=== PATIENT | female | born 1945 | race Caucasian/White ===

== ENCOUNTER 2021-03-21 10:36 | Emergency (ER) | payer MEDICARE, SELFPAY ==
[2021-03-21 10:37] VITALS: BP 183/110; PULSE 67; RESP 20; TEMP 36.6; O2SAT 98; BMI 31.4
[2021-03-21 11:07] VITALS: BP 155/89; PULSE 89; RESP 18; TEMP 37.2; O2SAT 96; O2SAT 98
--- NOTE | 2021-03-21 12:18 | RAD_ITS ---
INDICATION: cough EXAMINATION/TECHNIQUE: X-RAY - XR Chest 1 View COMPARISON: None. FINDINGS: LINES/DEVICES: None. Cardiomediastinal silhouette is within normal limits. Prominent interstitial markings and peribronchial cuffing suggestive of small airways disease. No focal consolidations, effusions, or sizable pneumothorax. Osseous structures are grossly intact. RAD/Chest 1 View (Portable) IMPRESSION: Findings suggestive of small airways disease such as bronchiolitis or bronchitis. Electronically Signed: Dash Hastings MD at 13:14 EST Tel , Service support ,
--- NOTE | 2021-03-21 12:19 | EDS_ITS ---
HPI History of Present Illness Chief Complaint: Shortness of Breath Informant: patient and family Narrative Narrative: 75-year-old female presenting to the emergency department with cough. Patient states that she has been diagnosed with chronic bronchitis. She states she has never smoked. She states that her doctor retired and she is from [place] and she would like a refill of her Symbicort. Her sister brought her to the emergency department today noting that her cough is very bad. She denies any fevers. She notes some morning sputum production. [facility] Asthma Bronchitis Home Medications albuterol sulfate [Ventolin HFA] 2 puff INHALATION Q4H PRN PRN #1 inhaler 03/21/21 [Rx Last Taken Unknown] fluoxetine [Prozac] 20 mg PO BID 03/21/21 [History Last Taken Unknown] prednisone See Rx Instructions .ROUTE .COMPLEX #24 tablet 03/21/21 [Rx Last Taken Unknown] trazodone 50 mg PO QHS 03/21/21 [History Last Taken Unknown] Allergy/AdvReac Type Severity Reaction Status Date / Time No Known Allergies Allergy Verified 03/21/21 10:40 Surgical History History of hysterectomy Hx of appendectomy Social History (Updated 03/21/21 @ 12:[address] Baldomero Coker DO) Smoking Status: Never smoker substance use type: does not use ROS ROS ED Constitutional Constitutional ED: Denies chills, fever(s) or weight loss Eyes Eyes: Denies change in vision or diplopia ENT ENT ED: Denies ear pain, rhinorrhea or sore throat Cardiovascular Cardiovascular: Denies chest pain, orthopnea, palpitations or racing heartbeat Respiratory/Chest Respiratory/Chest: Reports cough, dyspnea, dyspnea on exertion and sputum; Denies orthopnea Gastrointestinal Gastrointestinal: Denies abdominal pain, diarrhea, nausea or vomiting Genitourinary Genitourinary ED: Denies dysuria, hematuria or urinary frequency Musculoskeletal Musculoskeletal: Denies arthralgias or myalgias Integumentary Denies abscess or rash Neurologic Neurologic: Denies headache(s) or weakness Psychiatric Psychiatric: Denies anxiety, depression, suicidal ideation or suicidal thoughts Endocrine Endocrinology: Denies polydipsia, polyphagia or polyuria Allergic/Immunologic Allergic/Immunologic ED: Denies mouth swelling, tongue swelling or urticaria EXAM Physical Exam Const Vital Signs: 03/21/21 10:37 03/21/21 11:07 03/21/21 12:24 Temperature 97.9 F 98.9 F Temperature Source Temporal Oral Pulse Rate 67 89 64 Respiratory Rate 20 H 18 18 Respiratory Effort Short of Breath Respiratory Depth Normal Respiratory Pattern Normal Blood Pressure 183/110 H 155/89 H Blood Pressure Mean 134 111 Pulse Ox 98 98 93 Oxygen Delivery Method Room Air Nasal Cannula Room Air 03/21/21 13:02 Temperature 98.9 F Temperature Source Temporal Pulse Rate 67 Respiratory Rate 18 Respiratory Effort Respiratory Depth Respiratory Pattern Blood Pressure Blood Pressure Mean Pulse Ox 96 Oxygen Delivery Method Room Air Positive well nourished and well developed General Appearance ED: well developed HEENT Reports normocephalic, head/scalp atraumatic, TM's clear and moist mucous membranes atraumatic Tympanic Membrane ED: Yes TM's clear Eyes PERRL and EOMs intact bilaterally Neck no lymphadenopathy, supple and no JVD Resp Auscultation: rhonchi, wheezes and diminished lung sounds Cardio regular rate, regular rhythm and no murmurs GI normal to inspection, nondistended, normoactive bowel sounds and non-tender Palpation: soft Back/Spine no CVA tenderness and normal ROM Extremity normal to inspection General Extremety ED: Negative for edema General Extremity: Negative for edema Neuro oriented x3 and CN's II-XII intact bilaterally Sensorium / Orientation: alert Motor Exam: strength 5/5 throughout Psych mental status grossly normal Mood & Affect: Negative for depressed or tearful Skin no rashes or lesions noted and no wounds MDM MDM MDM Narrative Medical decision making narrative: White count 9.9. BMP negative. Inter pretation of the chest x-ray is no focal consolidation. Radiology reads this is suggestive of small airway disease. Patient received DuoNeb and albuterol. She also received Solu-Medrol. She feels better on repeat examination she has improved aeration but she continues to have moist cough and some expiratory wheezes. She is 97% on room air. Think patient can be discharged home with albuterol MDI and prednisone. I recommended that she follow-up with pulmonology in [place] when she returns home. Lab Data Attestation: I reviewed the patient's lab results. Labs: Laboratory Results - last 24 hr 03/21/21 03/21/21 12:25 12:25 WBC 9.9 RBC 4.74 Hgb 14.0 Hct 42.0 MCV 88.6 MCH 29.5 MCHC 33.3 RDW Std Deviation 42.8 RDW Coeff of [place] 13.2 Plt Count 242 MPV 10.3 Immature Gran % (Auto) 0.200 Neut % (Auto) 56.8 Lymph % (Auto) 20.0 [place] % (Auto) 7.7 Eos % (Auto) 14.7 H Baso % (Auto) 0.6 Absolute Neuts (auto) 5.6 Absolute Lymphs (auto) 1.98 Nucleated RBC % 0 Sodium 140 Potassium 4.0 Chloride 107 Carbon Dioxide 28.0 Anion Gap 5 BUN 12 Creatinine 0.85 Estim Creat Clear Calc 55.18 Est GFR (MDRD) Af Amer 84 Est GFR (MDRD) Non-Af 69 BUN/Creatinine Ratio 14.1 Glucose 102 Calcium 9.2 Radiography Diagnostic Testing: Clinical Impression(s) from Imaging Studies Chest X-Ray 03/21/21 12:18 IMPRESSION: Findings suggestive of small airways disease such as bronchiolitis or bronchitis. Electronically Signed: Dash Hastings MD at 13:14 EST Tel , Service support , Discharge Plan Triage Chief Complaint: Shortness of Breath ED Provider: Baldomero Coker Dx/Rx/DC Orders Clinical Impression: Acute bronchitis with bronchospasm Instructions: ED Bronchitis with Wheezing (Adult) Prescriptions: New prednisone 20 MG tablet See Rx Instructions .ROUTE .COMPLEX Qty: 24 RF: 0 albuterol sulfate [Ventolin HFA] 1 INHALER inhaler 2 puff inhalation Q4H PRN PRN (Reason: Wheezing) Qty: 1 RF: 0 No Action trazodone 50 mg Tablet 50 mg PO QHS RF: 0 fluoxetine [Prozac] 20 mg Capsule 20 mg PO BID RF: 0 Activity Restrictions/Additional Instructions: I strongly recommend that you follow-up with a patient registration representative when you return home to [place]. I think you would benefit you to have pulmonary function testing. Disposition Disposition: Home, Self Care
[2021-03-21] MEDS: Ipratropium/Albuterol Sulfate 3 ML AMPUL.NEB INHALATION (12:22)
[2021-03-21] MEDS: Albuterol 2.5 MG/3 ML VIAL.NEB. INHALATION (12:23)
[2021-03-21 12:24] VITALS: PULSE 64; RESP 18; O2SAT 93
[2021-03-21 12:34] LABS: Absolute Lymphocyte Count 1.98 X10^3/uL (0.83-4.51); Absolute Neutrophil Count 5.6 X10^3/uL (2.0-7.7); Basophil# 0.06 X10^3/uL; Basophil% 0.6 % (0-1); Eosinophil# 1.46 X10^3/uL; Eosinophils% 14.7 % (0-5); Lymphocyte # 1.98 X10^3/ul (0.83-4.51); Mean Corp Hgb Conc 33.3 g/dL (32-36); Mean Corpuscular Hgb 29.5 pg (27.0-32.0); Mean Corpuscular Volume 88.6 fL (81-99); Mean Platelet Vol. 10.3 fl (6.2-12.0); Monocyte# 0.76 X10^3/uL; Monocyte% 7.7 % (0-10); NRBC Flagged by Analyzer 0 % (0-5); Neutrophil # 5.64 X10^3/uL (2.7-7.7); Neutrophil % 56.8 % (47-70); Platelet Count 242 K/mm3 (150-450); RBC Distribution Width CV 13.2 % (11.6-14.6); RBC Distribution Width SD 42.8 fl (35.1-43.9); Red Blood Count 4.74 M/mm3 (4.2-5.4); White Blood Count 9.9 K/mm3 (4.4-11.0)
[2021-03-21 12:51] LABS: Anion Gap 5 (5-15); BUN 12 mg/dL (7-18); BUN/Creat Ratio 14.1 RATIO (10-20); Calcium,Total 9.2 mg/dL (8.5-10.1); Chloride 107 mmol/L (98-107); Creatinine, Serum 0.85 mg/dL (0.55-1.02); EST Glomerular Filtration Rate 69 mL/min (>60); Est Glom Filt Rate - Afr Amer 84 mL/min (>60); Estimated Creatinine Clearance 55.18 ml/min; Glucose 102 mg/dL (74-106); Sodium Level 140 mmol/L (136-145)
[2021-03-21 13:02] VITALS: PULSE 67; RESP 18; TEMP 37.2; O2SAT 96
[2021-03-21] MEDS: MethylPREDNISolone 125 MG/2 ML Vial IV (13:07)
[2021-03-21 13:50] VITALS: BP 133/85; PULSE 68; RESP 16; TEMP 37.1; O2SAT 97
== END 2021-03-21 13:52 | disposition home or self-care (01) ==
PROVIDERS: Emergency Provider Emergency Medicine
DX: J20.9 Acute bronchitis, unspecified (principal); J45.909 Unspecified asthma, uncomplicated; Z79.51 Long term (current) use of inhaled steroids
CPT/HCPCS: 71045; 80048; 85025; 94640; 94760; 96374; 99283; A4216

== ENCOUNTER → 2022-08-11 | Outpatient (CLI) | payer MEDICARE, SELFPAY ==
[2022-08-11 11:24] LABS: Hematocrit 40.1 % (37-47); Hemoglobin 12.8 g/dL (12.0-15.0); Mean Corp Hgb Conc 31.9 g/dL (32-36); Mean Corpuscular Hgb 29.5 pg (27.0-32.0); Mean Corpuscular Volume 92.4 fL (81-99); Mean Platelet Vol. 10.5 fl (6.2-12.0); Platelet Count 237 K/mm3 (150-450); RBC Distribution Width CV 13.1 % (11.6-14.6); RBC Distribution Width SD 44.6 fl (35.1-43.9); Red Blood Count 4.34 M/mm3 (4.2-5.4); White Blood Count 6.8 K/mm3 (4.4-11.0)
== END | disposition home or self-care (01) ==
PROVIDERS: Referring Provider Internal Medicine Pulmonary Disease; Visit Provider Internal Medicine Pulmonary Disease
DX: J45.909 Unspecified asthma, uncomplicated (principal)
CPT/HCPCS: 36415; 85027